=== PATIENT | female | born 1980 | race African-American/Black ===

== ENCOUNTER 2017-01-23 18:16 | Emergency (ER) | payer MEDICAID ==
[~2017-01-23] VITALS: Ht 165.1 cm; Wt 68.0 kg
[2017-01-23] MEDS ORDERED: TETANUS, DIPHTHERIA, PERTUSSIS VAC/PF 0.5ML (>7YR OLD) IM ONE (23:15)
[2017-01-23] MEDS ORDERED: LIDOCAINE HCL 1%/EPI 1:200,000 30 ML VIAL MC NR (23:15)
[2017-01-23] MEDS ORDERED: ONDANSETRON 4MG ODT PO NR (23:15)
[2017-01-23] MEDS ORDERED: KETOROLAC 30MG/ML VIAL IM NR (23:15)
[2017-01-23] MEDS ORDERED: BACITRACIN ZINC OINT UDPKT TOP NR (23:15)
[2017-01-24] MEDS ORDERED: HYDROCODONE/APAP 7.5/325MG 1 TAB TABLET PO ONE (02:45)
[2017-01-24 04:52] VITALS: BP 99/62
== END 2017-01-24 06:18 | disposition home or self-care (01) ==
LOC: ER 18:16
DX: S02.2XXA Fracture of nasal bones, initial encounter for closed fracture (principal); S01.112A Laceration without foreign body of left eyelid and periocular area, initial encounter; F17.210 Nicotine dependence, cigarettes, uncomplicated; Z98.890 Other specified postprocedural states; Y04.0XXA Assault by unarmed brawl or fight, initial encounter; Y93.89 Activity, other specified; Y92.838 Other recreation area as the place of occurrence of the external cause
CPT/HCPCS: 12011; 70450; 70486; 72125; 81025; 90471; 90715; 96372; 99284; J1885; Q0162; X7700; Z7610